=== PATIENT | male | born 2000 | race Caucasian/White ===

== ENCOUNTER 2020-06-14 09:25 | Emergency (ER) | payer MEDICAID ==
[~2020-06-14] VITALS: Ht 167.6 cm; Wt 63.5 kg
[2020-06-14 09:43] VITALS: BP_SYST 149
--- NOTE | 2020-06-14 09:48 | NUR ---
Placed to room 4 in [facility]. C/O Leg pain.
--- NOTE | 2020-06-14 09:53 | NUR ---
ER Dr. Eduardo at bedside examining patient.
[2020-06-14 10:08] VITALS: BP_SYST 149
--- NOTE | 2020-06-14 10:09 | NUR ---
Patient given written and verbal discharge instructions and verbalizes understanding. ER MD discussed with patient the results and treatment provided. Patient in stable condition. ID arm band removed. Rx of naproxen and tramadol given. Patient educated on pain management and to follow up with PMD. Pain Scale 3/10. Opportunity for questions provided and answered. Medication side effect fact sheet provided.
== END 2020-06-14 10:09 | disposition home or self-care (01) ==
LOC: SED 09:25
DX: M54.41 Lumbago with sciatica, right side (principal)
CPT/HCPCS: 99283